=== PATIENT | male | born 2000 | race Two or more races ===

== ENCOUNTER 2025-06-10 10:13 | Emergency (ER) | payer OTHER ==
[~2025-06-10] VITALS: Ht 165.1 cm; Wt 86.2 kg
[2025-06-10 10:22] VITALS: BP 123/70; TEMP 97.2; O2SAT 100
== END 2025-06-10 10:38 ==
LOC: ER 10:23
DX: S60.512A Abrasion of left hand, initial encounter (principal); Z65.3 Problems related to other legal circumstances; Y04.1XXA Assault by human bite, initial encounter; Y93.89 Activity, other specified; Y92.89 Other specified places as the place of occurrence of the external cause; Y99.8 Other external cause status